=== PATIENT | female | born 1945 | race Caucasian/White ===

== ENCOUNTER 2024-10-10 16:11 | Emergency (ER) | payer BC ==
[~2024-10-10] VITALS: Ht 170.1 cm; Wt 85.7 kg
[~2024-10-10 16:11] MED LIST: LEVOFLOXACIN500 MG PO; VICODIN 500 MG-1 TAB PO; ZANTAC150 MG PO
[2024-10-10] MEDS ORDERED: LISINOPRIL20 MG PO (16:32)
[2024-10-10] MEDS ORDERED: APRESOLINE25 MG PO (16:32)
[2024-10-10] MEDS ORDERED: METFORMIN HYDR500 MG PO (16:32)
[2024-10-10 17:14] LABS: BASO % 0.6 % (0.0-1.0); HEMATOCRIT 39.2 % (37.0-47.0); MEAN CELL VOLUME 87.3 fl (81.0-99.0); MEAN CORPUSCULAR HGB 27.6 pg (27.0-31.0); MEAN CORPUSCULAR HGB CONC 31.6 g/dl (33.0-37.0); MEAN PLATELET VOLUME 10.1 fl (9.6-12.3); MONO # 0.4 10*3/uL (0.1-1.0); MONO % 7.7 % (3.0-9.0); NEUT # 3.1 10*3/uL (2.3-7.9); PLATELET COUNT AUTOMATED 254 10*3/uL (130-400); RED BLOOD COUNT 4.49 10*6/uL (4.10-5.10); RED CELL DISTRI WIDTH 12.9 % (0-14.5); WHITE BLOOD COUNT 5.4 10*3/uL (4.8-10.8)
[2024-10-10 17:42] LABS: BUN 15 mg/dl (9-23); CHLORIDE 105 mmol/L (98-107); POTASSIUM 3.4 mmol/L (3.4-5.1)
[2024-10-10] MEDS ORDERED: hydrALAZINE hydrochloride 20 MG/ML VIAL IV ONE (17:50)
== END 2024-10-10 19:22 | disposition home or self-care (01) ==
LOC: ED 16:11
PROVIDERS: Physician Assistant Medical
DX: I10 Essential (primary) hypertension (principal); Z79.84 Long term (current) use of oral hypoglycemic drugs; Z79.899 Other long term (current) drug therapy

== ENCOUNTER 2025-05-13 05:40 | Emergency (ER) | payer OTHER ==
[~2025-05-13] VITALS: Ht 170.1 cm; Wt 83.9 kg
[~2025-05-13 05:40] MED LIST changes: +APRESOLINE25 MG PO; +LISINOPRIL20 MG PO; +METFORMIN HYDR500 MG PO
[2025-05-13 06:09] LABS: BILIRUBIN Negative (Negative); BLOOD Negative (Negative); CLARITY Clear (Clear); COLOR Yellow (Yellow); KETONE Trace (Negative); LEUKO ESTERASE Negative (Negative); NITRITE Negative (Negative); PH 5.5 (4.5-8.0); SPECIFIC GRAVITY 1.025 (1.001-1.030); UROBILINOGEN 1.0 E.U./dl (0.0-1.0)
[2025-05-13 06:25] LABS: BACTERIA TRACE; WBC 0-2 wbc/hpf (0-5)
[2025-05-13 06:26] LABS: BASO # 0.1 10*3/uL (0.0-0.1); BASO % 0.7 % (0.0-1.0); EOS # 0.3 10*3/uL (0.0-0.4); EOS % 4.1 % (1.0-4.0); MEAN CELL VOLUME 88.3 fl (81.0-99.0); MEAN CORPUSCULAR HGB 28.3 pg (27.0-31.0); MEAN PLATELET VOLUME 10.2 fl (9.6-12.3); MONO # 0.5 10*3/uL (0.1-1.0); MONO % 6.4 % (3.0-9.0); NEUT # 5.0 10*3/uL (2.3-7.9); NEUT % 67.8 % (47.0-73.0); NUCLEATED RED BLOOD CELL 0.0 % (0.0-0.0); NUCLEATED RED BLOOD CELL 0.0 10*3/uL (0.0-0.0); PLATELET COUNT AUTOMATED 203 10*3/uL (130-400); RED CELL DISTRI WIDTH 12.3 % (0-14.5)
[2025-05-13] MEDS ORDERED: SODIUM CHLORIDE 0.9% 1,000 ML IV ONE (06:30)
[2025-05-13] MEDS ORDERED: Promethazine Hydrochloride 25 MG TAB PO ONE (06:30)
[2025-05-13 06:41] LABS: BUN 15 mg/dl (9-23)
== END 2025-05-13 09:45 | disposition home or self-care (01) ==
LOC: ED 05:40
PROVIDERS: Internal Medicine
DX: K52.1 Toxic gastroenteritis and colitis (principal); T50.2X5A Adverse effect of carbonic-anhydrase inhibitors, benzothiadiazides and other diuretics, initial encounter; R39.11 Hesitancy of micturition; Z79.899 Other long term (current) drug therapy; Z79.84 Long term (current) use of oral hypoglycemic drugs; Z86.73 Personal history of transient ischemic attack (TIA), and cerebral infarction without residual deficits; Y92.89 Other specified places as the place of occurrence of the external cause